=== PATIENT | female | born 1970 | race Caucasian/White ===

== ENCOUNTER 2022-07-02 00:55 | Emergency (ER) | payer OTHER, SELFPAY ==
[2022-07-02 00:56] VITALS: BP 147/81; PULSE 72; RESP 16; TEMP 35.7; O2SAT 98; BMI 21.4
--- NOTE | 2022-07-02 01:32 | ED.VIS.DENTA ---
HPI History of Present Illness Chief Complaint: Dental Informant: patient Onset/Context/Timing Onset: Weeks (1-2) Context: Gradual Onset Timing: Continuous Quality: Throbbing Location: Right maxillary Current Severity: Severe Maximum Severity: Severe Worsened by: Eating Relieved by: - (Nothing tried ibuprofen) Associated Symptoms Assocated Symptom - Dental: face swelling Narrative Narrative: Worsening dental pain now with swelling right maxilla. No purulent nasal discharge or fevers/chills. Has not made an appointment with a dentist yet. Trouble sleeping tonight so came in 1 AM for the pain. PFSH PFSH Medical History no medical history no medical history Home Medications amoxicillin 500 mg tablet 500 mg PO TID #30 tabs 07/02/22 [Rx Last Taken Unknown] tramadol 50 mg tablet 50 mg PO Q6H PRN pain 3 days #12 tabs 07/02/22 [Rx Last Taken Unknown] Allergy/AdvReac Type Severity Reaction Status Date / Time No Known Allergies Allergy Verified 07/02/22 00:59 Social History Smoking Status: Light Smoker (<10/day) ROS ROS ED Constitutional Constitutional ED: Denies chills or fever(s) Eyes Eyes: Denies change in vision or double vision ENT ENT ED: Reports dental pain; Denies sinus pain or throat swelling Cardiovascular Cardiovascular: Denies chest pain or palpitations Respiratory/Chest Respiratory/Chest: Denies cough or dyspnea Integumentary Denies abscess or rash Neurologic Neurologic: Denies headache(s), paresthesias or weakness EXAM Physical Exam Const Vital Signs: 07/02/22 00:56 Temperature 96.2 F L Temperature Source Temporal Pulse Rate 72 Respiratory Rate 16 Blood Pressure 147/81 H Blood Pressure Mean 103 Pulse Ox 98 Oxygen Delivery Method Room Air Positive well nourished and well developed General Appearance ED: well developed and NAD HEENT HEENT Narrative: No purulent nasal discharge. Small periapical abscess visible intraorally around severely decayed tooth #3. Mild swelling in the right maxillary face without a palpable abscess in that area. No spontaneous discharge intraorally or bleeding or signs of gingivitis. No trismus. Face and Sinus: sinuses nontender Throat: posterior oropharynx normal Eyes PERRL and EOMs intact bilaterally Neck no lymphadenopathy and supple Resp normal respiratory effort Neuro oriented x3 and CN's II-XII intact bilaterally Sensorium / Orientation: alert Gait (Neuro): normal gait Psych mental status grossly normal and thought process normal Skin no rashes or lesions noted and no wounds MDM MDM MDM Narrative Medical decision making narrative: I offered abscess drainage from an intraoral aspect/approach after topical anesthesia but the patient refuses and does not want any of that even though antibiotics may take a couple days to start working against this, and that may accelerate healing if I am able to withdraw pus. She understands the pros and cons here. She prefers antibiotics only and something for pain, which I will prescribe her since she drove here. Given dental resource list as well. Discharge Plan Triage Chief Complaint: Dental ED Provider: Kosta Shelley Dx/Rx/DC Orders Clinical Impression: Dental abscess, Dental decay Instructions: Dental Abscess Prescriptions: New tramadol 50 MG tablet 50 mg PO Q6H PRN (Reason: pain) 3 Days Qty: 12 0RF amoxicillin 500 MG tablet 500 mg PO TID Qty: 30 0RF Primary Care Provider: Care Physician,No Primary Referrals: Care Physician,No Primary [Primary Care Provider] - Dentist,Your [STAFF PHYSICIAN] - As soon as possible Disposition Disposition: Home, Self Care
[2022-07-02] MEDS: AMOXICILLIN 500 MG CAPSULE PO (02:08)
== END 2022-07-02 02:22 | disposition home or self-care (01) ==
LOC: ED 01:56
PROVIDERS: Emergency Provider Emergency Medicine; Visit Provider Emergency Medicine
DX: K04.7 Periapical abscess without sinus (principal); K02.9 Dental caries, unspecified; F17.200 Nicotine dependence, unspecified, uncomplicated
CPT/HCPCS: 99283